=== PATIENT | male | born 1970 | race Caucasian/White ===

== ENCOUNTER → 2019-10-06 | Outpatient (CLI) | payer OTHER ==
[~2019-10-06] MED LIST: IBUP-1007 PO; LIDO5CRE9 TP; OXYC1TAB19 PO; POLY17PO29 PO
== END | disposition home or self-care (01) ==
LOC: LAB 14:43
PROVIDERS: ATTEND Surgery
DX: Z01.818 Encounter for other preprocedural examination (principal); Z11.59 Encounter for screening for other viral diseases
CPT/HCPCS: C9803; U0003; 36415

== ENCOUNTER 2019-10-08 11:31 | Day surgery (SDC) | payer OTHER ==
[~2019-10-08] VITALS: Ht 175.3 cm; Wt 102.0 kg
[~2019-10-08 11:31] MED LIST changes: -LIDO5CRE9 TP; -OXYC1TAB19 PO
[2019-10-08] MEDS ORDERED: PROPOFOL 10 MG/ML (20ML) VIAL. IV ONE (11:44)
[2019-10-08] MEDS ORDERED: fentaNYL PF VIAL 100 MCG/2 ML VIAL ONE ×3 (11:44→15:10)
[2019-10-08] MEDS ORDERED: LIDOCAINE 2% PF 5 ML VIAL. ONE (11:44)
[2019-10-08] MEDS ORDERED: DEXAMETHASONE SOD PHOS 4 MG/ML VIAL ONE (11:44)
[2019-10-08] MEDS ORDERED: MIDAZOLAM HCL/PF 2 MG/2 ML VIAL. ONE (11:44)
[2019-10-08] MEDS ORDERED: ONDANSETRON PF 4 MG/2 ML VIAL. ONE (11:44)
[2019-10-08] MEDS ORDERED: IV RINGERS,LACTATED 1000ML 1,000 ML IV SCH (12:15)
[2019-10-08] MEDS ORDERED: LIDOCAINE 2% JELLY 6ML IN APPLICATOR. ONE (13:47)
[2019-10-08] MEDS ORDERED: BUPIVACAINE-EPI 0.5%-1:200000 MPF 30 ML VIAL. ONE (13:47)
[2019-10-08] MEDS ORDERED: GELATIN SPONGE SIZE 100. ONE (13:47)
[2019-10-08] MEDS ORDERED: ceFAZolin 2GM PREMIX 2 GM/50 ML BAG IV ONE (14:00)
[2019-10-08] MEDS ORDERED: ROCURONIUM 50 MG/5 ML VIAL. ONE (14:13)
[2019-10-08] MEDS ORDERED: METHYLENE BLUE 0.5% 10ml AMPULE. ONE (14:18)
[2019-10-08] MEDS ORDERED: NEOSTIGMINE METHYLSULFATE 5 MG/5 ML SYRINGE. ONE (14:36)
[2019-10-08] MEDS ORDERED: GLYCOPYRROLATE 1 MG/5 ML VIAL. ONE (14:36)
[2019-10-08] MEDS ORDERED: SEVOFLURANE 31 TO 60 MINUTES. IH ONE (14:36)
[2019-10-08] MEDS ORDERED: OXYC1TAB19 PO (15:10)
[2019-10-08] MEDS: fentaNYL PF VIAL 100 MCG/2 ML VIAL IVP PRN ×5 (15:13→17:15)
[2019-10-08] MEDS ORDERED: fentaNYL PF VIAL 100 MCG/2 ML VIAL IVP PRN (15:30)
[2019-10-08] MEDS ORDERED: oxyCODONE/APAP 7.5/325 1 TAB TABLET ONE (15:31)
[2019-10-08] MEDS ORDERED: LIDO5CRE9 TP (15:32)
--- NOTE | 2019-10-08 15:33 | DISCH ---
DISCHARGE INSTRUCTIONS Condition on Discharge Condition on Discharge: Stable Activity After Discharge Activity Instructions for Disc: Activity as tolerated, Avoid exertion Lifting Instructions after Dis: No heavy lifting Driving Instructions after Dis: Do not drive today Diet after Discharge Diet after Discharge: Regular Additional Diet Restrictions: CONTINUE STOOL SOFTENERS Wound Incision Care Other wound/incision instructi: sitz bathes QID prn Follow-Up Follow up with: Reji 10/13 NELSON KELLEY MD October 08, 2019 15:33
[2019-10-08 15:35] VITALS: BP 158/100
--- NOTE | 2019-10-08 15:37 | PDOC ---
BRIEF OPERATIVE NOTE Date: October 08, 2019 Pre-Op Diagnosis fistula in ano Post-Op Diagnosis same, hemorrhoid Procedure Performed EUA rigid proctoscopy excision fistula in ano hemorrhoidectomy Surgeon Reji Anesthesia Type: General Blood Loss 10cc IV Fluid 600cc Specimens Obtained fistula hemorrhoid Findings superficial fistula internal hemorrhoid Complications none NELSON KELLEY MD October 08, 2019 15:37
[2019-10-08] MEDS ORDERED: oxyCODONE/APAP 7.5/325 1 TAB TABLET PO ONE (15:45)
--- NOTE | 2019-10-08 17:20 | NUR ---
PT UNABLE TO URINATE AND "FEELS LIKE NEEDS TO GO. " REPORTS JUST DRIBBLES WHEN UP TO BR. DR KELLEY NOTIFIED PER Srinivasa EPSTEIN RN. O RECEIVED. BLADDER SCANNER REVEALS ~ 120 ML URINE. INSTRUCTED TO GO HOME AND CALL IF NO VOID IN 8 HRS, PER DR KELLEY CAN GET IN A HOT BATH AND TRY TO GO WHILE SUBMERGED. VOICES COMPREHENSION OF ABOVE.
--- NOTE | 2019-10-10 15:07 | PATHOLOGY ---
[facility] Accession Number: [id number] . 01 Material submitted: . PART A: rectum - RECTAL FISTULA PART B: hemorrhoids - HEMORRHOIDS . 01 Clinical history: . Rectal fistula. . 02 Diagnosis: A. Squamous mucosa and submucosa "rectal fistula": - Fistulous tract with acute and chronic inflammation, appears excised in these sections. - There is no evidence of atypia or malignancy. . B. Squamous and glandular mucosa "hemorrhoids", hemorrhoidectomy: - Dilated congested vessels consistent with hemorrhoids. - Reactive squamous and glandular mucosa with underlying chronic inflammation. (SHA/db; 10/10/2019) LBQ 10/10/2019 1159 Local . 02 Electronically signed: . Lázaro Canas MD, Pathologist NPI- [id number] . 01 Gross description: . A. Received in formalin labeled "Nahid, Nathan, rectal fistula" is a fragment of gross white soft tissue measuring 1.6 x 1.2 x 0.8 cm. A full thickness defect is identified, measuring 0.2 cm in diameter and 0.7 cm in depth. The specimen is serially sectioned and submitted entirely in cassette [place]1. [place] [place] . B. Received in formalin labeled "Nahid, Nathan, hemorrhoids" is a single portion of gross-white to pink-brown mucosa and skin measuring 2.6 x 1.6 x 1.4 cm. Upon sectioning, the cut surface displays hemorrhage and dilated blood vessels. Contact Lens Blocker sections are submitted in cassette B1. [place] [place]/09[place] [facility] 10/09/2019 1658 Local . 02 Pathologist provided ICD-10: K62.89, K60.4 . 02 CPT . 454129, [id number] Specimen Comment: A courtesy copy of this report has been sent to [phone] Specimen Comment: Report sent to Performed at: 01 [facility] [id number] [address] [id number] MD Hao Hall MD Phone: [phone] [facility]: [facility] [address] [place], [place] [id number] MD Efra Gomes MD Phone: [phone]
--- NOTE | 2019-10-14 10:00 | OP ---
DATE OF SURGERY: 10/08/2019 PREOPERATIVE DIAGNOSIS: [id number]. POSTOPERATIVE DIAGNOSES: [id number]-io-[id number], internal hemorrhoid. PROCEDURES: 1. Exam under anesthesia. 2. Rigid proctoscopy. 3. Excision of [id number]-gn-[id number]. 4. Hemorrhoidectomy. SURGEON: Nelson Kelley MD ANESTHESIA: General endotracheal. ESTIMATED BLOOD LOSS: 10 mL. INTRAVENOUS FLUIDS: 600 mL. SPECIMENS: Fistula and hemorrhoids. DESCRIPTION OF PROCEDURE: The patient brought to the operating suite, given a general endotracheal anesthetic, placed in the prone jackknife position. Buttocks were taped apart and the digital rectal exam was done followed by placement of the rigid scope in the anal canal. Under direct vision, the scope was advanced to approximately 15 cm from the anal verge, where it was then slowly removed and no significant mucosal changes seen, save a single internal hemorrhoid. The area was then prepped and draped in usual sterile fashion and 0.5% Marcaine with epinephrine was infiltrated circumanally. The fistula at 6 o'clock was gently probed and found to be superficial to the sphincteric muscle. It had been injected with methylene blue to identify the tract. It was then excised, preserving the sphincteric musculature. A single internal hemorrhoid was controlled with a 2-0 chromic stitch proximally. Skin incision made in the mucosa and underlying hemorrhoid removed with LigaSure, again preserving the sphincteric musculature. A 2-0 chromic used to close the mucosa. Area checked for hemostasis and when present and a correct sponge count was obtained. Gelfoam pack placed in anal canal. Dressings applied. The patient was taken out of the prone position, awakened from his anesthetic and taken to the recovery room in satisfactory condition. NELSON KELLEY MD DR: KERRY/shira JOB#: [id number] / [id number]
== END 2019-10-08 17:45 | disposition home or self-care (01) ==
LOC: SURG 11:31
PROVIDERS: ATTEND Surgery
DX: K60.3 Anal fistula (principal); K64.8 Other hemorrhoids; K62.5 Hemorrhage of anus and rectum; K62.89 Other specified diseases of anus and rectum; F41.9 Anxiety disorder, unspecified; Z79.899 Other long term (current) drug therapy; Z87.891 Personal history of nicotine dependence; Z98.890 Other specified postprocedural states
CPT/HCPCS: 46270; 46945; A7015; J0696; J1100; J2250; J2405; J2704; J2710; J3010; J3490; Q9968; 88304; A4461